=== PATIENT | male | born 1955 | race Caucasian/White ===

== ENCOUNTER → 2021-02-20 | Outpatient (CLI) | payer OTHER | LOC: HEART 5 11:28 | DX: J45.40 Moderate persistent asthma, uncomplicated (principal) | CPT/HCPCS: 94060 ==

== ENCOUNTER → 2022-02-26 | Outpatient (CLI) | payer OTHER | LOC: HEART 5 11:49 | DX: J45.50 Severe persistent asthma, uncomplicated (principal) | CPT/HCPCS: 94060; 94729 ==